=== PATIENT | female | born 1965 | race Caucasian/White ===

== ENCOUNTER 2022-11-08 23:06 | Emergency (ER) | payer SELFPAY ==
--- NOTE | ~2022-11-08 | CT_ITS ---
Noncontrast CT scan of the cervical spine Technique: Multiple contiguous axial [address] images of the cervical spine were obtained and rec onstructed in 2D sagittal and coronal planes on the acquisition scanner. Dose reduction technique was used on this scan by utilizing automated exposure control, adjustment of the mA and/or kV according to patient size. Clinical History: Pain Findings: No fractures or dislocations. Mild degenerative disc change noted at C3-C4 and C4-C5. No p revertebral soft tissue swelling. Impression: No fracture or subluxation of the cervical spine. Reviewed, dictated and finalized at location . E SETTER Impression: No fracture or subluxation of the cervical spine.
--- NOTE | ~2022-11-08 | CT_ITS ---
Non-contrast Head CT History: Head injury Technique: Axial non-contrast imaging of the brain was performed. Dose reduction technique was used on this scan by utilizing automated exposure control and iterative reconstruction technique. The dose -length product (DLP) was 529.67 mGy-cm. Findings: There is no evidence of intracranial hemorrhage, mass lesion, or acute infarct. Brain par enchyma appears normal. The ventricles and subarachnoid spaces are normal in size. The calvarium ap pears normal. The visualized paranasal sinuses and mastoid air cells are clear. Impression: No significant abnormality seen. Reviewed, dictated and finalized at [facility]. E DIALYSIS NURSE Impression: No significant abnormality seen.
[2022-11-08 23:12] VITALS: BP 106/79; PULSE 99; RESP 18; TEMP 36; O2SAT 100
[2022-11-08 23:50] LABS: Basophils Absolute Auto 0.1 K/mm3 (0.0-0.1); Basophils Percent Auto 1.5 % (0.2-1.2); Eosinophils Absolute Auto 0.1 K/mm3 (0-0.3); Eosinophils Percent Auto 2.3 % (0-4.4); Hematocrit 35.6 % (37.0-47.0); Hemoglobin 12.2 g/dL (12.0-15.0); Immature Granulocyte Absolute 0.01 K/mm3 (0.00-0.031); Immature Granulocyte Percent A 0.2 % (0-0.5); Lymphocytes Percent Auto 30.1 % (18.3-44.2); Mean Corpuscular HGB Conc 34.3 g/dl (32-36); Mean Corpuscular Hemoglobin 34.1 pg (26-34); Mean Corpuscular Volume 99.4 fl (80-100); Mean Platelet Volume 8.5 fl (7.4-10.4); Monocytes Absolute Auto 0.4 K/mm3 (0.1-0.6); Monocytes Percent Auto 7.7 % (2.6-8.5); Neutrophils Absolute Auto 3.1 K/mm3 (1.3-6.7); Neutrophils Percent Auto 58.2 % (45.5-73.1); Platelet Count Result 293 k/mm3 (150-375); Red Blood Count 3.58 M/mm3 (4.2-5.4); Red Cell Distribution Width 12.6 % (11.5-14.5); White Blood Count 5.3 K/mm3 (4.5-10.0)
[2022-11-08 23:57] VITALS: RESP 16
[2022-11-09] VITALS (17 sets, daily range): BP systolic 68–114; BP diastolic 45–80; PULSE 61–108; RESP 10–22; O2SAT 92–100
[2022-11-09 00:07] LABS: Alanine Aminotransferase 119 U/L (6-35); Albumin Level 4.6 g/dL (3.5-5.1); Alkaline Phosphatase 97 U/L (38-126); Anion Gap 14 mmol/L (8-16); Aspartate Amino Transferase 152 U/L (14-36); Bilirubin,Total 0.4 mg/dL (0.2-1.3); Blood Urea Nitrogen 11 mg/dL (7-17); Calcium 8.9 mg/dL (8.4-10.2); Carbon Dioxide 24 mmol/L (22-30); Chloride 99 mmol/L (98-107); Estimated CRCL calculation 66 ml/min; Estimated Glomerular Filt Rate > 60; Glucose 83 mg/dL (65-110); Potassium 3.9 mmol/L (3.4-5.0); Sodium 137 mmol/L (137-145)
--- NOTE | 2022-11-09 01:35 | ED.FALL ---
HPI - Fall General Chief Complaint: Fall <HARESH Moffett Last Filed: 11/09/22 03:48> Stated Complaint: hit head, dizzy <HARESH Moffett Last Filed: 11/09/22 03:48> Time Seen by Provider: 11/09/22 00:04 <HARESH Moffett Last Filed: 11/09/22 03:48> Source: patient and family <HARESH Moffett Last Filed: 11/09/22 03:48> Mode of arrival: ambulatory <HARESH Moffett Last Filed: 11/09/22 03:48> Limitations: no limitations <HARESH Moffett Last Filed: 11/09/22 03:48> History of Present Illness HPI Narrative: Patient is a 57-year-old female who presents the ED with report of a fall with head injury. Patient reports she has had issues with intermittent dizziness, described as lightheadedness, over the last couple weeks with standing. No room spinning sensation. She has had a few falls recently. Patient is a heavy drinker per patient's family member at bedside. She reports she drank 2 beers today. She had a fall in her bathroom today in which she hit her head and sustained a contusion to her right posterior scalp. Denied any LOC. No neck or back pain. Denies vision changes, nausea, vomiting, chest pain, difficulty breathing, weakness, confusion. She is not on any blood thinners. <HARESH Moffett Last Filed: 11/09/22 03:48> Related Data Allergies/Adverse Reactions: Allergies Allergy/AdvReac Type Severity Reaction Status Date / Time azithromycin AdvReac Gastrointestinal Verified 11/09/22 00:00 Upset erythromycin base AdvReac Gastrointestinal Verified 11/09/22 00:00 Upset <HARESH Moffett Last Filed: 11/09/22 03:48> Review of Systems Review of Systems: CONSTITUTIONAL: Denies fever, chills, or sweats. EYES: Denies visual changes. CARDIOVASCULAR: Denies chest pain. RESPIRATORY: Denies dyspnea. GASTROINTESTINAL: Denies abdominal pain, nausea, vomiting. MUSCULOSKELETAL: Denies back pain, neck pain. NEUROLOGIC: See HPI. <Yelena Murguia PA-C - Last Filed: 11/09/22 03:48> All systems reviewed & are unremarkable except as noted in HPI and below <Yelena Murguia PA-C - Last Filed: 11/09/22 03:48> [facility] Past Medical History Medical History: Medical History (Updated 11/09/22 @ 03:28 by Yelena Murguia PA-C) Depression GERD (gastroesophageal reflux disease) HTN (hypertension) <Yelena Murguia PA-C - Last Filed: 11/09/22 03:48> Surgical History Surgical History: Surgical History (Updated 11/09/22 @ 01:40 by Yelena Murguia PA-C) No pertinent past surgical history <Yelena Murguia PA-C - Last Filed: 11/09/22 03:48> Social History Social History: Social History (Updated 11/09/22 @ 01:40 by Yelena Murguia PA-C) Smoking status: Never smoker Alcohol intake: current <Yelena Murguia PA-C - Last Filed: 11/09/22 03:48> Exam Narrative: GENERAL: Well appearing, thin, non-toxic, in no acute distress. HEAD: Normocephalic. Contusion to right posterior scalp, mildly tender to palpation. No wounds. EYES: PERRLA/EOMI, conjunctiva clear. NECK: Supple. No adenopathy, no masses. No midline spinal tenderness. RESPIRATORY: Airway patent, respirations nonlabored. Clear to auscultation bilaterally, no rales, rhonchi, wheezing. CARDIOVASCULAR: Regular rate and rhythm without murmurs, rubs, or gallops. Peripheral pulses 2+ and equal bilaterally. ABDOMINAL: Soft, nontender, nondistended, no hepatosplenomegaly. Normoactive BS. MUSCULOSKELETAL: Moves all extremities. Strength/ROM intact without gross deformities. No midline thoracic or lumbar spinal tenderness. SKIN: Warm, dry, normal color. No rashes. Scattered ecchymosis to right upper extremity in different stages of healing. NEURO: A&O X3. Speech clear. Cranial nerves II-XII grossly intact. Steady gait. No ataxic movements. PSYCHIATRIC: Appropriate mood and affec
[2022-11-09] MEDS: SODIUM CHLORIDE 0.9% IV 1,000 ML 999 ML IV CONT ×2 (02:23→03:58)
== END 2022-11-09 05:24 | disposition home or self-care (01) ==
PROVIDERS: Physician Assistant; Emergency Provider Emergency Medicine; PCP Family Medicine
DX: S00.03XA Contusion of scalp, initial encounter (principal); I95.9 Hypotension, unspecified; I10 Essential (primary) hypertension; K21.9 Gastro-esophageal reflux disease without esophagitis; W18.30XA Fall on same level, unspecified, initial encounter
CPT/HCPCS: 36415; 70450; 72125; 80053; 85025; 96360; 96361; 99284; J7030

== ENCOUNTER 2024-06-17 10:51 | Emergency (ER) | payer OTHER, SELFPAY ==
--- NOTE | ~2024-06-17 | XR_ITS ---
EXAMINATION: XR chest 1V portable DATE: 06/17/2024 11:46 INDICATION: Cough and shortness of breath. TECHNIQUE: A single frontal view of the chest was obtained. COMPARISON: None. FINDINGS: There is no pneumonia, pleural effusion, pneumothorax or the heart size is normal. There is a moderate-sized hiatal hernia. IMPRESSION: 1. Moderate-sized hiatal hernia. Reviewed, dictated and finalized at location A.
[2024-06-17 11:11] VITALS: BP 138/95; RESP 16; TEMP 36.8; O2SAT 100
--- NOTE | 2024-06-17 11:18 | ED.SOB ---
HPI - SOB/Dyspnea General Chief Complaint: Shortness of Breath/Dyspnea Stated Complaint: COVID Time Seen by Provider: 06/17/24 11:06 History of Present Illness HPI Narrative: Pt presents with SOB starting today. Pt says she has had a RAZO and ST for two days. Pt had covid test and is positive. Pt is concerned because she has COPD and wonders if she needs paxlovid. Related Data Allergies Allergy/AdvReac Type Severity Reaction Status Date / Time azithromycin AdvReac Gastrointestinal Verified 11/09/22 00:00 Upset erythromycin base AdvReac Gastrointestinal Verified 11/09/22 00:00 Upset Review of Systems Review of Systems: All systems reviewed & are unremarkable except as noted in HPI and below PMFSH Past Medical History Medical History (Updated 06/17/24 @ 12:46 by Pearl Subramanian III, DO) Depression GERD (gastroesophageal reflux disease) HTN (hypertension) Surgical History Surgical History (Updated 11/09/22 @ 01:40 by Yelena Murguia PA-C) No pertinent past surgical history Social History Social History (Updated 11/09/22 @ 01:40 by Yelena Murguia PA-C) Smoking status: Never smoker Alcohol intake: current Exam Const: General: healthy appearing and no acute distress Nutritional Appearance: well nourished Orientation/consciousness: patient oriented x3 Limitations: no limitations Chest: Chest palpation & inspection: normal inspection of the chest Resp: Effort & Inspection: normal respiratory effort Auscultation: clear to auscultation bilaterally Cardio: Rate: regular rate Rhythm: regular rhythm GI: GI Palp: Yes Soft to palpation and No Tenderness to palpation present (GI) Auscultation: normal bowel sounds Skin: General skin exam: normal color Rashes: no rashes Wounds: no wounds Neuro: General: patient oriented x3, moves all extremities, no meningeal signs and no focal motor deficits Speech: normal speech Extrem: General: normal to inspection and no clubbing, cyanosis or edema Psych: Mental Status: mental status grossly normal Affect: normal affect Attitude: cooperative Course Vital Signs Vital signs: Vital Signs Temperature 98.3 F 06/17/24 11:11 Respiratory Rate 16 06/17/24 11:11 Blood Pressure 138/95 H 06/17/24 11:11 Pulse Oximetry 100 06/17/24 11:11 Temperature 98.3 F 06/17/24 11:11 Pulse Rate 106 H 06/17/24 12:51 Respiratory Rate 18 06/17/24 12:51 Blood Pressure 147/96 H 06/17/24 12:51 Pulse Oximetry 97 06/17/24 12:51 Oxygen Delivery Room Air 06/17/24 11:42 MDM - SOB/Dyspnea MDM Narrative Medical decision making narrative: pt sob with covid. sats 98% on RA and lungs clear. Pt has COPD hx. will give neb and get labs and cxr. cxr and labs unremarkable. Pt feels better after neb. wants to try paxlovid so will prescribe. Lab Data 06/17/24 11:33 06/17/24 11:33 Labs: Lab Results 06/17/24 Range/Units 11:33 WBC 6.3 (4.5-10.0) K/mm3 RBC 4.00 L (4.2-5.4) M/mm3 Hgb 13.9 (12.0-15.0) g/dL Hct 41.6 (37.0-47.0) % MCV 104.0 H (80-100) fl MCH 34.8 H (26-34) pg MCHC 33.4 (32-36) g/dl RDW 14.2 (11.5-14.5) % Plt Count 293 (150-375) k/mm3 MPV 9.1 (7.4-10.4) fl Immature Gran % (Auto) 0.5 (0-0.5) % Neut % (Auto) 59.4 (45.5-73.1) % Lymph % (Auto) 25.3 (18.3-44.2) % [place] % (Auto) 11.4 H (2.6-8.5) % Eos % (Auto) 1.6 (0-4.4) % Baso % (Auto) 1.8 H (0.2-1.2) % Lymph # (Auto) 1.58 (0.9-3.2) K/mm3 [place] # (Auto) 0.7 H (0.1-0.6) K/mm3 Eos # (Auto) 0.1 (0-0.3) K/mm3 Baso # (Auto) 0.1 (0.0-0.1) K/mm3 Abs Immat Gran (auto) 0.03 (0.00-0.031) K/mm3 Absolute Neuts (auto) 3.7 (1.3-6.7) K/mm3 Absolute Nucleated RBC 0.000 (0.0-0.012) K/mm3 Nucleated RBC % 0.0 (0.0-0.2) % PT 13.7 (11.1-14.7) Seconds INR 1.0 APTT 27.6 (22.3-36.8) Seconds Sodium 137 (137-145) mmol/L Potassium 3.7 (3.4-5.0) mmol/L Chloride 104 (98-107
[2024-06-17 11:20] VITALS: PULSE 85; RESP 18
[2024-06-17] MEDS: IPRATROPIUM 0.5 MG/ALBUTEROL SULFATE 2.5 MG AMPUL.NEB 3 ML INHALATION ×3 (11:31→11:41)
[2024-06-17 11:36] VITALS: PULSE 82; RESP 14; O2SAT 100
[2024-06-17 11:42] VITALS: O2SAT 100
[2024-06-17 11:49] LABS: Basophils Absolute Auto 0.1 K/mm3 (0.0-0.1); Basophils Percent Auto 1.8 % (0.2-1.2); Eosinophils Absolute Auto 0.1 K/mm3 (0-0.3); Eosinophils Percent Auto 1.6 % (0-4.4); Hematocrit 41.6 % (37.0-47.0); Hemoglobin 13.9 g/dL (12.0-15.0); Immature Granulocyte Absolute 0.03 K/mm3 (0.00-0.031); Immature Granulocyte Percent A 0.5 % (0-0.5); Lymphocytes Absolute Auto 1.58 K/mm3 (0.9-3.2); Lymphocytes Percent Auto 25.3 % (18.3-44.2); Mean Corpuscular HGB Conc 33.4 g/dl (32-36); Mean Corpuscular Hemoglobin 34.8 pg (26-34); Mean Platelet Volume 9.1 fl (7.4-10.4); Monocytes Absolute Auto 0.7 K/mm3 (0.1-0.6); Monocytes Percent Auto 11.4 % (2.6-8.5); Neutrophils Absolute Auto 3.7 K/mm3 (1.3-6.7); Neutrophils Percent Auto 59.4 % (45.5-73.1); Platelet Count Result 293 k/mm3 (150-375); Red Cell Distribution Width 14.2 % (11.5-14.5); White Blood Count 6.3 K/mm3 (4.5-10.0)
[2024-06-17 11:50] VITALS: PULSE 93; RESP 18
[2024-06-17 11:59] LABS: Prothrombin Time 13.7 Seconds (11.1-14.7)
[2024-06-17 12:00] LABS: Alanine Aminotransferase 29 U/L (6-35); Albumin Level 4.1 g/dL (3.5-5.1); Alkaline Phosphatase 102 U/L (38-126); Anion Gap 15 mmol/L (4-12); Aspartate Amino Transferase 45 U/L (14-36); Bilirubin,Total 0.3 mg/dL (0.2-1.3); Blood Urea Nitrogen 15 mg/dL (7-17); Calcium 8.7 mg/dL (8.4-10.2); Carbon Dioxide 18 mmol/L (22-30); Chloride 104 mmol/L (98-107); Estimated CRCL calculation 52 ml/min; Estimated Glomerular Filt Rate > 60; Glucose 71 mg/dL (65-110); Magnesium 1.4 mg/dL (1.6-2.3); Partial Thromboplastin Time 27.6 Seconds (22.3-36.8); Potassium 3.7 mmol/L (3.4-5.0); Sodium 137 mmol/L (137-145)
[2024-06-17 12:08] LABS: NT Pro B Type Natriuretic Pept 217 pg/mL (19.9-100)
[2024-06-17 12:15] LABS: Troponin I < 0.012 ng/mL (0.000-0.034)
[2024-06-17 12:51] VITALS: BP 147/96; PULSE 106; RESP 18; O2SAT 97
== END 2024-06-17 13:00 | disposition home or self-care (01) ==
PROVIDERS: Emergency Provider Emergency Medicine; PCP Family Medicine
DX: U07.1 COVID-19 (principal); I10 Essential (primary) hypertension; K21.9 Gastro-esophageal reflux disease without esophagitis; K44.9 Diaphragmatic hernia without obstruction or gangrene
CPT/HCPCS: 36415; 71045; 80053; 83735; 83880; 84484; 85025; 85610; 85730; 87040; 94640; 99284

== ENCOUNTER 2024-11-20 10:12 | Emergency (ER) | payer OTHER, SELFPAY ==
--- NOTE | ~2024-11-20 | CT_ITS ---
EXAMINATION: CT lumbar spine wo con DATE: 11/20/2024 13:05 INDICATION: Back pain. TECHNIQUE: Computed tomography (CT) of the lumbar spine was performed without intravenous contrast. A utomated exposure control and iterative reconstruction technique were employed. The dose-length produ ct was 197.58 mGy-cm. COMPARISON: None FINDINGS: There is a fibroid uterus. There is 10 degrees levoscoliosis of lumbar spine. Vertebral bod y heights are normal. There is a chronic right L5 pars defect. There is mildly decreased disc height at L2-L3. The following disc levels are specifically discussed: L1-L2: The disc does not extend beyond the endplate margin. There is mild bilateral facet joint osteo arthritis. There is no neural foraminal stenosis. There is no central canal stenosis. L2-L3: The disc is bulging. There is mild bilateral facet joint osteoarthritis. There is mild bilater al neural foraminal stenosis. There is mild central canal stenosis. L3-L4: The disc is bulging. There is mild bilateral facet joint osteoarthritis. There is mild bilater al neural foraminal stenosis. There is mild central canal stenosis. L4-L5: The disc is bulging. There is moderate bilateral facet joint osteoarthritis. There is mild rima ateral neural foraminal stenosis. There is mild central canal stenosis. L5-S1: The disc does not extend beyond the endplate margin. There is mild right and severe left facet joint osteoarthritis. There is no neural foraminal stenosis. There is no central canal stenosis. IMPRESSION: 1. Mild lumbar spondylosis. 2. Lumbar levoscoliosis. 3. Chronic right L5 pars defect. Reviewed, dictated and finalized at location A. ENGINEER
[2024-11-20 10:16] VITALS: BP 139/65; PULSE 74; RESP 16; TEMP 36.6; O2SAT 100
--- NOTE | 2024-11-20 12:04 | ED.GENADULT ---
HPI - General Adult General Chief complaint: Extremity Injury, Lower Stated complaint: cant walk Time Seen by Provider: 11/20/24 11:44 History of Present Illness HPI narrative: Patient is a 59-year-old female who presents ER with reports of low back pain difficulty walking. Reports back pain for months. His had flared where she starts to have her leg buckle his she feels weak in her thigh. Reports recent fall. She missed her schedule appointment to have an MRI of her spine back. She has been getting worked up by her PCP. No trauma. No fevers or chills or sweats. Recently had outpatient lab work that revealed normal TSH and low vitamin-D. She has been started on vitamin-D replacement. Patient reports urinary frequency and urgency. No fevers or chills. No history of surgery on her back. Normal function of bowel and bladder. No lower extremity numbness or saddle anesthesia. Patient has strength in her legs but just occasionally gives out. Related Data Allergies Allergy/AdvReac Type Severity Reaction Status Date / Time azithromycin AdvReac Gastrointestinal Verified 11/09/22 00:00 Upset erythromycin base AdvReac Gastrointestinal Verified 11/09/22 00:00 Upset Review of Systems Review of Systems: All systems reviewed & are unremarkable except as noted in HPI and below Constitutional: Constitutional: Reports no additional constitutional complaints Cardiovascular: Cardiovascular: Reports no additional cardiovascular complaints Respiratory: Respiratory: Reports no additional respiratory complaints Musculoskeletal: Musculoskeletal: Reports no additional musculoskeletal complaints Neurologic: Reports system reviewed and no additional complaints, except as documented PMFSH Past Medical History Medical History (Updated 11/20/24 @ 15:11 by Georgi Zhou MD) Depression GERD (gastroesophageal reflux disease) HTN (hypertension) Surgical History Surgical History (Updated 11/09/22 @ 01:40 by Yelena Murguia PA-C) No pertinent past surgical history Social History Social History (Updated 11/09/22 @ 01:40 by Yelena Murguia PA-C) Smoking status: Never smoker Alcohol intake: current Exam Narrative: GENERAL: Well-appearing, well-nourished, and in no acute distress. HEAD: Normocephalic, atraumatic. ENT: Mucous membranes moist. CHEST: Clear to auscultation. No respiratory distress. HEART: Regular rate and rhythm. Normal peripheral pulses. BACK: No reproducible midline tenderness of the T/L-spine. No significant paraspinal tenderness. EXTREMITIES: Normal range of motion. No edema. Ambulates normally, one instance where leg buckled but patient caught herself. SKIN: Warm, dry, no rash. NEURO: Alert and oriented x3. PSYCH: Normal mood and affect. Course Course Emergency Course: Discussed degenerative changes seen on CT scan of the lumbar spine. Also discussed labs including UTI. Discharge home with oral antibiotics as well as anti-inflammatories. Discussed that she needs to schedule her outpatient imaging studies for further evaluation of her back and then likely need referral to Spine surgery. Patient verbalized understanding. Vital Signs Vital signs: Vital Signs Temperature 97.8 F 11/20/24 10:16 Pulse Rate 74 11/20/24 10:16 Respiratory Rate 16 11/20/24 10:16 Blood Pressure 139/65 11/20/24 10:16 Pulse Oximetry 100 11/20/24 10:16 Oxygen Delivery Room Air 11/20/24 10:16 Temperature 97.6 F 11/20/24 13:56 Pulse Rate 74 11/20/24 13:56 Respiratory Rate 16 11/20/24 13:56 Blood Pressure 134/76 11/20/24 13:56 Pulse Oximetry 100 11/20/24 13:56 Oxygen Delivery Room Air 11/20/24 10:16 Medical Decision Making Vital Signs Vital Signs: Vital Signs Temperature 97.8 F 11/20/24 10:16 Pulse Rate 74 11/20/24 10:16 Respiratory Rate 16 11/20/24 10:16 Blood Pressure 139/65 11/20/24 10:16 Pulse Oximetry 100 11/20/24 10:16 Oxygen Delivery Room Air 11/20/24 10:16 Temperature 97.6 F 11/20/24 13:56 Pulse Rate 74 11/20/24 13:56 Respiratory Rate 16 11/20/24 13:56 Blood Pressure 134/76 11/20/24 13:56 Pulse Oximetry 100 11/20/24 13:56 Oxygen Delivery Room Air 11/20/24 10:16 Lab Data 11/20/24 12:03 11/20/24 12:03 Labs: Lab Results 11/20/24 Range/Units 12:03 WBC 7.9 (4.5-10.0) K/mm3 RBC 4.00 L (4.2-5.4) M/mm3 Hgb 14.3 (12.0-15.0) g/dL Hct 43.2 (37.0-47.0) % MCV 108.0 H (80-100) fl MCH 35.8 H (26-34) pg MCHC 33.1 (32-36) g/dl RDW 14.3 (11.5-14.5) % Plt Count 306 (150-375) k/mm3 MPV 9.1 (7.4-10.4) fl Immature Gran % (Auto) 0.3 (0-0.5) % Neut % (Auto) 73.5 H (45.5-73.1) % Lymph % (Auto) 16.8 L (18.3-44.2) % [place] % (Auto) 6.9 (2.6-8.5) % Eos % (Auto) 1.1 (0-4.4) % Baso % (Auto) 1.4 H (0.2-1.2) % Lymph # (Auto) 1.33 (0.9-3.2) K/mm3 [place] # (Auto) 0.6 (0.1-0.6) K/mm3 Eos # (Auto) 0.1 (0-0.3) K/mm3 Baso # (Auto) 0.1 (0.0-0.1) K/mm3 Abs Immat Gran (auto) 0.02 (0.00-0.031) K/mm3 Absolute Neuts (auto) 5.8 (1.3-6.7) K/mm3 Absolute Nucleated RBC 0.000 (0.0-0.012) K/mm3 Nucleated RBC % 0.0 (0.0-0.2) % Platelet Estimate Adequate (Adequate) Macrocytosis 1+ (NORMAL) Ovalocytes 1+ Schistocytes None seen Sodium 140 (137-145) mmol/L Potassium 3.8 (3.4-5.0) mmol/L Chloride 107 (98-107) mmol/L Carbon Dioxide 14 L (22-30) mmol/L Anion Gap 19 H (4-12) mmol/L BUN 20 H (7-17) mg/dL Creatinine 0.96 (0.7-1.0) mg/dL Estim Creat Clear Calc 47 ml/min Estimated GFR 60 (59 - ) Glucose 76 (65-110) mg/dL Calcium 9.7 (8.4-10.2) mg/dL Magnesium 1.7 (1.6-2.3) mg/dL Total Bilirubin 0.8 (0.2-1.3) mg/dL AST 117 H (14-36) U/L ALT 80 H (6-35) U/L Alkaline Phosphatase 113 (38-126) U/L Total Protein 8.0 (6.3-8.2) g/dL Albumin 4.5 (3.5-5.1) g/dL Urine Color Yellow (Yellow) Urine Appearance Cloudy H (Clear) Urine pH 6.0 (5.0-9.0) Ur Specific [place] 1.013 (1.001-1.035) Urine Protein 1+ H (Negative) mg/dL Urine Glucose (UA) Negative (Negative) mg/dL Urine Ketones Trace H (Negative) mg/dL Ur Blood (Man) 3+ H (Negative) Urine Nitrate Positive H (Negative) Urine Bilirubin Negative (Negative) Urine Urobilinogen 0.2 (<2.0) mg/dL Leukocyte Esterase Rfl 2+ H (Negative) TRACIE/UL Urine RBC 0-2 (0-2) /hpf Urine WBC 21-50 H (0-3) /hpf Ur Squamous Epith Cells Occasional (Few) /hpf Urine Bacteria 4+ /hpf Urine Casts 0-2 Imaging Data Radiologist's impression: ITS Impressions Lumbar Spine CT 11/20/24 13:28 IMPRESSION: 1. Mild lumbar spondylosis. 2. Lumbar levoscoliosis. 3. Chronic right L5 pars defect. Discharge Plan Discharge Clinical Impression: Chronic back pain, UTI (urinary tract infection) Patient Disposition: Home, Self-Care Condition: Stable Instructions: Antibiotic Form, Urinary Tract Infection in Women (ED), Chronic Back Pain (DC) Additional Instructions: Please return to the emergency department if you develop severe pain that is not controlled by pain medications or if you are unable to walk because of pain or weakness. Return to the emergency department immediately if you develop fevers, loss of bowel or bladder control (dribbling of urine or having accidents you wouldn't normally have), inability to urinate, numbness of your genital or anal area, or weakness/numbness of your legs or arms as these could all be signs of a serious medical emergency. Patient Language: Nepali Prescriptions: New naproxen 375 mg tablet 375 mg PO BID Qty: 14 0RF sulfamethoxazole-trimethoprim [Bactrim DS] 800-160 mg tablet 1 tablet PO Q12H Qty: 14 0RF No Action Paxlovid 300 mg (150 mg x 2)-100 mg tablets,dose pack See Rx Instructions .ROUTE .COMPLEX Qty: 30 0RF Rx Instructions: take TWO 150 mg tablets of nirmatrelvir with ONE 100 mg tablet of ritonavir twice daily for 5 days Follow-up/Referrals: Fallon,DO Amanda [Primary Care Provider] - 1 Week
[2024-11-20 12:11] LABS: Basophils Absolute Auto 0.1 K/mm3 (0.0-0.1); Basophils Percent Auto 1.4 % (0.2-1.2); Eosinophils Absolute Auto 0.1 K/mm3 (0-0.3); Eosinophils Percent Auto 1.1 % (0-4.4); Hematocrit 43.2 % (37.0-47.0); Hemoglobin 14.3 g/dL (12.0-15.0); Immature Granulocyte Absolute 0.02 K/mm3 (0.00-0.031); Immature Granulocyte Percent A 0.3 % (0-0.5); Lymphocytes Absolute Auto 1.33 K/mm3 (0.9-3.2); Lymphocytes Percent Auto 16.8 % (18.3-44.2); Mean Corpuscular HGB Conc 33.1 g/dl (32-36); Mean Corpuscular Hemoglobin 35.8 pg (26-34); Mean Platelet Volume 9.1 fl (7.4-10.4); Monocytes Absolute Auto 0.6 K/mm3 (0.1-0.6); Monocytes Percent Auto 6.9 % (2.6-8.5); Neutrophils Absolute Auto 5.8 K/mm3 (1.3-6.7); Neutrophils Percent Auto 73.5 % (45.5-73.1); Platelet Count Result 306 k/mm3 (150-375); Red Cell Distribution Width 14.3 % (11.5-14.5); White Blood Count 7.9 K/mm3 (4.5-10.0)
[2024-11-20 12:14] LABS: Add Urine Microscopic? YES; Appearance Urine Cloudy (Clear); Bacteria Urine 4+ /hpf; Bilirubin Urine Negative (Negative); Blood Urine 3+ (Negative); Color Urine Yellow (Yellow); Glucose Urine UA Negative (Negative); Ketones Urine Trace mg/dL (Negative); Leukocyte Esterase Ur 2+ LEU/UL (Negative); Nitrate Urine Positive (Negative); Non Pathogenic Casts 0-2; Protein Urine 1+ mg/dL (Negative); RBC Urine 0-2 /hpf (0-2); Specific Grav Ur 1.013 (1.001-1.035); Squamous Epithelial Cell Urine Occasional /hpf (Few); Urobilinogen Urine 0.2 mg/dL (<2.0); WBC Urine 21-50 /hpf (0-3)
[2024-11-20 12:16] VITALS: BP 136/80; PULSE 78; RESP 16; TEMP 36.6; O2SAT 100
[2024-11-20 12:24] LABS: Alanine Aminotransferase 80 U/L (6-35); Albumin Level 4.5 g/dL (3.5-5.1); Alkaline Phosphatase 113 U/L (38-126); Anion Gap 19 mmol/L (4-12); Aspartate Amino Transferase 117 U/L (14-36); Bilirubin,Total 0.8 mg/dL (0.2-1.3); Blood Urea Nitrogen 20 mg/dL (7-17); Calcium 9.7 mg/dL (8.4-10.2); Carbon Dioxide 14 mmol/L (22-30); Chloride 107 mmol/L (98-107); Estimated CRCL calculation 47 ml/min; Estimated Glomerular Filt Rate 60; Glucose 76 mg/dL (65-110); Potassium 3.8 mmol/L (3.4-5.0); Sodium 140 mmol/L (137-145)
[2024-11-20 12:25] LABS: Magnesium 1.7 mg/dL (1.6-2.3)
[2024-11-20 13:00] VITALS: BP 136/78; PULSE 76; RESP 16; TEMP 36.6; O2SAT 100
[2024-11-20 13:02] LABS: Macrocytosis 1+ (NORMAL); Ovalocytes 1+; Platelet Estimate Adequate (Adequate); Schistocytes None Seen
[2024-11-20 13:56] VITALS: BP 134/76; PULSE 74; RESP 16; TEMP 36.4; O2SAT 100
[2024-11-20 15:28] VITALS: BP 126/78; PULSE 78; RESP 16; TEMP 36.6; O2SAT 100
== END 2024-11-20 15:35 | disposition home or self-care (01) ==
PROVIDERS: Emergency Provider Emergency Medicine; PCP Family Medicine
DX: M54.9 Dorsalgia, unspecified (principal); G89.29 Other chronic pain; N39.0 Urinary tract infection, site not specified
CPT/HCPCS: 36415; 72131; 80053; 81001; 83735; 85025; 87086; 87186; 96374; 99284